=== PATIENT | female | born 1975 | race Caucasian/White ===

== ENCOUNTER → 2016-11-28 | Outpatient (REF) | payer OTHER | LOC: M SFHCLERA 20:04 | PROVIDERS: ATTEND Physician Assistant | DX: J02.9 Acute pharyngitis, unspecified (principal) ==

== ENCOUNTER → 2018-11-26 | Outpatient (REF) | payer OTHER | LOC: M SFHCLERA 12:24 | PROVIDERS: ATTEND Nurse Practitioner Family | DX: R68.89 Other general symptoms and signs (principal) ==

== ENCOUNTER → 2019-01-20 | Outpatient (REF) | payer OTHER | LOC: M SFHCLERA 15:49 | PROVIDERS: ATTEND Physician Assistant | DX: J02.9 Acute pharyngitis, unspecified (principal) ==

== ENCOUNTER → 2019-04-02 | Outpatient (REF) | payer OTHER ==
[2019-04-02 17:19] LABS: BASO # 0.1 10^3/uL (0.0-0.2); EOS # 0.2 10^3/uL (0.0-0.50); EOS % 2.8 % (0.0-3.0); HEMATOCRIT 42.5 % (36.0-47.0); HEMOGLOBIN 13.8 g/dl (12.0-15.5); LYMPH # 2.4 10^3/uL (1.5-4.5); LYMPH % 33.1 % (24.0-44.0); MEAN CORPUSCULAR HEMOGLOBIN 29.2 pg (27.0-33.0); MEAN CORPUSCULAR HGB CONC 32.5 g/dl (32.0-36.5); MONO # 0.5 10^3/uL (0.0-0.8); MONO % 7.2 % (0.0-5.0); NEUTROPHILS % 55.5 % (36.0-66.0); PLATELET COUNT, AUTOMATED 310 10^3/uL (150-450); RED BLOOD COUNT 4.72 10^6/uL (4.00-5.40); WHITE BLOOD COUNT 7.2 10^3/uL (4.0-10.0)
[2019-04-02 17:20] LABS: ALBUMIN 3.9 GM/DL (3.2-5.2); ALT/SGPT 21 U/L (12-78); BILIRUBIN,TOTAL 0.3 MG/DL (0.2-1.0); BLOOD UREA NITROGEN 12 MG/DL (7-18); CALCIUM LEVEL 9.3 MG/DL (8.5-10.1); CARBON DIOXIDE LEVEL 31 MEQ/L (21-32); CHLORIDE LEVEL 107 MEQ/L (98-107); CHOLESTEROL LEVEL 230 MG/DL (<200); CHOLESTEROL RISK RATIO 2.948 (<5); FREE T4 0.84 NG/DL (0.76-1.46); GLOMERULAR FILTRATION RATE > 60.0 (>58); GLUCOSE, FASTING 93 MG/DL (70-100); HDL CHOLESTEROL 78 MG/DL (>40); LDL CHOLESTEROL 126 MG/DL (<100); NON-HDL-C 152 MG/DL; POTASSIUM SERUM 4.6 MEQ/L (3.5-5.1); SODIUM LEVEL 139 MEQ/L (136-145); THYROID PEROXIDASE ANTIBODY 39.1 U/ML (<60.0); TOTAL PROTEIN 7.4 GM/DL (6.4-8.2); TRIGLYCERIDES LEVEL 128 MG/DL (<150)
[2019-04-05 10:23] LABS: THYROGLOBULIN ANTIBODY < 15.0 U/ML (<60.0)
== END ==
LOC: M SFHCLERA 11:34
PROVIDERS: ATTEND Nurse Practitioner Family
DX: G47.00 Insomnia, unspecified (principal); Z13.220 Encounter for screening for lipoid disorders; Z86.39 Personal history of other endocrine, nutritional and metabolic disease

== ENCOUNTER → 2019-07-26 | Outpatient (REF) | payer OTHER | LOC: M SFHCLERA 12:52 | PROVIDERS: ATTEND Nurse Practitioner Family | DX: J02.9 Acute pharyngitis, unspecified (principal) ==

== ENCOUNTER → 2019-10-22 | Outpatient (REF) | payer OTHER | LOC: M SFHCLERA 09:38 | PROVIDERS: ATTEND Physician Assistant | DX: R50.9 Fever, unspecified (principal) ==

== ENCOUNTER → 2019-10-26 | Outpatient (CLI) | payer OTHER ==
--- NOTE | 2019-10-26 13:04 | REP ---
CHEST, TWO VIEWS: There is no evidence of acute infiltrate. No pleural effusion is seen. The heart is normal in size. The mediastinal silhouette is unremarkable. The visualized osseous structures are intact. IMPRESSION: No acute pulmonary disease. Electronically Signed by Sameer Ellison MD 10/26/2019 07:55 P
== END ==
LOC: M LRY 12:31
PROVIDERS: ATTEND Physician Assistant
DX: J10.1 Influenza due to other identified influenza virus with other respiratory manifestations (principal); R05 Cough
CPT/HCPCS: 71046; G0463

== ENCOUNTER → 2020-11-01 | Outpatient (REF) | payer OTHER | LOC: M SFHCLERA 09:25 | PROVIDERS: ATTEND Nurse Practitioner Family | DX: J06.9 Acute upper respiratory infection, unspecified (principal) | CPT/HCPCS: 82726; 87804; 87880; G0463; U0003 ==

== ENCOUNTER → 2022-07-25 | Outpatient (CLI) | payer OTHER | LOC: M SLEEP 20:00 | PROVIDERS: ATTEND Nurse Practitioner Family | DX: G47.33 Obstructive sleep apnea (adult) (pediatric) (principal) ==

== ENCOUNTER 2022-09-08 03:19 | Emergency (ER) | payer OTHER ==
[~2022-09-08] VITALS: Ht 160 cm; Wt 109.1 kg
[2022-09-08] MEDS ORDERED: FAMO40TA3 PO (03:29)
[2022-09-08] MEDS ORDERED: SERTRALINE (03:29)
[2022-09-08] MEDS ORDERED: MONT10TA97 PO (03:29)
[2022-09-08] MEDS ORDERED: DOXY100T PO (03:29)
[2022-09-08] MEDS ORDERED: PANT20TA6 PO (03:29)
[2022-09-08 03:52] VITALS: BP 137/75
[2022-09-08] MEDS ORDERED: MORPHINE 4 MG/ML 1ML VIAL IV ONE (04:05)
[2022-09-08] MEDS ORDERED: MIDAZOLAM INJ 2MG/2ML VIAL IV STA (04:42)
[2022-09-08] MEDS ORDERED: fentaNYL 100 MCG/2 ML INJECTION IV ONE ×2 (04:45)
[2022-09-08] MEDS ORDERED: NORCO 5/325MG TABLET (HOME DOSE PACK) PO ONE (05:20)
[2022-09-08] MEDS ORDERED: MIDAZOLAM INJ 2MG/2ML VIAL IV ONE (05:20)
[2022-09-08] MEDS ORDERED: PERCOCET 5MG/325MG TAB PO ONE (05:40)
== END 2022-09-08 07:20 | disposition home or self-care (01) ==
LOC: M ED 03:19
DX: S82.831A Other fracture of upper and lower end of right fibula, initial encounter for closed fracture (principal); S82.391A Other fracture of lower end of right tibia, initial encounter for closed fracture; S93.04XA Dislocation of right ankle joint, initial encounter; X50.1XXA Overexertion from prolonged static or awkward postures, initial encounter; Y92.410 Unspecified street and highway as the place of occurrence of the external cause; K21.9 Gastro-esophageal reflux disease without esophagitis; F41.9 Anxiety disorder, unspecified; Z88.0 Allergy status to penicillin

== ENCOUNTER 2022-09-11 11:49 | Observation (INO) | payer OTHER ==
[~2022-09-11] VITALS: Ht 160 cm; Wt 106.8 kg
[~2022-09-11 11:49] MED LIST: DOXY100T PO; FAMO40TA3 PO; MONT10TA97 PO; PANT20TA6 PO; SERTRALINE
[2022-09-11 14:27] LABS: RSV AMPLIFICATION NEGATIVE (NEGATIVE)
[2022-09-11] MEDS ORDERED: D 50CAP3 PO (15:20)
[2022-09-11] MEDS ORDERED: RA M10TA PO (15:20)
[2022-09-11] MEDS ORDERED: ACET500T15 PO (15:20)
[2022-09-11] MEDS ORDERED: IBUP200T46 PO (15:20)
[2022-09-11] MEDS ORDERED: ZOLO100T PO (15:20)
[2022-09-11] MEDS ORDERED: VITMTA PO (15:20)
[2022-09-11] MEDS ORDERED: B-COTAB10 PO (15:20)
[2022-09-11] MEDS ORDERED: HOME MED LIST COMPLETE! XX SCH (15:25)
[2022-09-11 16:23] LABS: HEMATOCRIT 39.9 % (36.0-47.0); HEMOGLOBIN 12.7 g/dl (12.0-15.5); MEAN CORPUSCULAR HEMOGLOBIN 29.1 pg (27.0-33.0); MEAN CORPUSCULAR HGB CONC 31.8 g/dl (32.0-36.5); MEAN CORPUSCULAR VOLUME 91.5 fl (80.0-96.0); PLATELET COUNT, AUTOMATED 324 10^3/uL (150-450); RED BLOOD COUNT 4.36 10^6/uL (4.00-5.40); WHITE BLOOD COUNT 7.7 10^3/uL (4.0-10.0)
[2022-09-11 16:47] LABS: BLOOD UREA NITROGEN 8 MG/DL (9-23); CALCIUM LEVEL 9.6 MG/DL (8.5-10.1); CARBON DIOXIDE LEVEL 28 MMOL/L (20-31); CHLORIDE LEVEL 101 MMOL/L (98-107); CREATININE FOR GFR 0.73 MG/DL (0.55-1.30); GLOMERULAR FILTRATION RATE > 60.0 (>58); GLUCOSE, FASTING 93 MG/DL (60-100); POTASSIUM SERUM 4.1 MMOL/L (3.5-5.1); SODIUM LEVEL 137 MMOL/L (136-145)
[2022-09-11] MEDS ORDERED: NS 1,000 ML IV SCH (18:45)
[2022-09-11] MEDS: MORPHINE 2 MG/ML 1ML VIAL IV PRN (19:37)
[2022-09-11] MEDS: FAMOTIDINE 20 MG TAB PO SCH (21:00)
[2022-09-11] MEDS ORDERED: BUPIVACAINE HCL 0.25% 30ML VIAL As Ordered ONE (21:05)
[2022-09-11] MEDS ORDERED: ACETAMINOPHEN 1000MG 100ML IV BAG As Ordered ONE (21:09)
[2022-09-11] MEDS ORDERED: SUGAMMADEX SODIUM 500 MG/5 ML VIAL (BRIDION) As Ordered ONE (21:09)
[2022-09-11] MEDS ORDERED: ONDANSETRON 4MG 2ML VIAL As Ordered ONE (21:09)
[2022-09-11] MEDS ORDERED: propofoL 200 MG/20 ML VIAL As Ordered ONE (21:09)
[2022-09-11] MEDS ORDERED: fentaNYL 100 MCG/2 ML INJECTION As Ordered ONE (21:09)
[2022-09-11] MEDS ORDERED: ROCURONIUM BROMIDE 50MG/5ML VIAL As Ordered ONE (21:09)
[2022-09-11] MEDS ORDERED: LIDOCAINE 2% 100MG/5ML SDV (FOR ANES.) As Ordered ONE (21:09)
[2022-09-11] MEDS ORDERED: KETOROLAC 60MG 2ML VIAL As Ordered ONE (21:09)
[2022-09-11] MEDS ORDERED: MIDAZOLAM INJ 2MG/2ML VIAL As Ordered ONE (21:10)
[2022-09-11] MEDS ORDERED: ceFAZolin 2 GM/D5W 50 ML IV BAG As Ordered ONE (21:18)
[2022-09-11] MEDS ORDERED: ceFAZolin 1GM VIAL As Ordered ONE (21:19)
[2022-09-11] MEDS ORDERED: LR 1,000 ML IV SCH (21:20)
[2022-09-11] MEDS ORDERED: ONDANSETRON 4MG 2ML VIAL IV PRN (21:20)
[2022-09-11] MEDS ORDERED: BUPIVACAINE HCL 0.5% 30ML VIAL As Ordered ONE (22:48)
[2022-09-11] MEDS ORDERED: HYDROmorphone HCL 2MG/ML 1ML VIAL As Ordered ONE (23:44)
[2022-09-12] VITALS (9 sets, daily range): BP systolic 110–150; BP diastolic 57–85
[2022-09-12] MEDS: HYDROMORPHONE HCL 0.5 MG/ 0.5 ML SYRINGE IV PRN ×3 (00:11→00:26)
[2022-09-12] MEDS ORDERED: MIDAZOLAM INJ 2MG/2ML VIAL IV ONE (00:25)
[2022-09-12] MEDS ORDERED: oxyCODONE 5MG TAB PO PRN (00:30)
[2022-09-12] MEDS ORDERED: ACETAMINOPHEN TAB 650MG DOSE (2X325MG) PO PRN (00:35)
[2022-09-12] MEDS ORDERED: SENNA 8.6 MG TAB (SENOKOT) PO PRN (00:35)
[2022-09-12] MEDS ORDERED: KETAMINE HCL 200MG/20ML VIAL IV ONE (01:00)
[2022-09-12] MEDS ORDERED: KETAMINE HCL 200MG/20ML VIAL As Ordered ONE (01:03)
[2022-09-12] MEDS: MORPHINE 2 MG/ML 1ML VIAL IV PRN (03:28)
[2022-09-12 05:33] LABS: HEMATOCRIT 36.6 % (36.0-47.0); HEMOGLOBIN 11.8 g/dl (12.0-15.5); MEAN CORPUSCULAR HGB CONC 32.2 g/dl (32.0-36.5); MEAN CORPUSCULAR VOLUME 93.1 fl (80.0-96.0); PLATELET COUNT, AUTOMATED 284 10^3/uL (150-450); RED BLOOD COUNT 3.93 10^6/uL (4.00-5.40); WHITE BLOOD COUNT 11.1 10^3/uL (4.0-10.0)
[2022-09-12] MEDS: ceFAZolin SOD 2 GM in IV 1 EA IV SCH ×3 (05:46→20:43)
[2022-09-12 06:00] LABS: BLOOD UREA NITROGEN 10 MG/DL (9-23); CALCIUM LEVEL 7.9 MG/DL (8.5-10.1); CARBON DIOXIDE LEVEL 24 MMOL/L (20-31); CHLORIDE LEVEL 103 MMOL/L (98-107); CREATININE FOR GFR 0.67 MG/DL (0.55-1.30); GLOMERULAR FILTRATION RATE > 60.0 (>58); GLUCOSE, FASTING 110 MG/DL (60-100); SODIUM LEVEL 136 MMOL/L (136-145)
[2022-09-12] MEDS: PERCOCET 5MG/325MG TAB PO PRN ×5 (06:40→22:35)
[2022-09-12] MEDS: PANTOPRAZOLE 20 MG TAB PO SCH (08:10)
[2022-09-12] MEDS: THIAMINE 100 MG TAB PO SCH (08:11)
[2022-09-12] MEDS: DOCUSATE SODIUM 100MG CAPSULE PO SCH ×2 (08:11→20:43)
[2022-09-12] MEDS: MONTELUKAST 10 MG TAB PO SCH (08:11)
[2022-09-12] MEDS: MULTIVITAMINS/MINERALS THERAP 1 TAB PO SCH (08:11)
[2022-09-12] MEDS: SERTRALINE 100 MG TAB PO SCH (08:11)
[2022-09-12] MEDS: FOLIC ACID 1MG TAB PO SCH (08:11)
[2022-09-12] MEDS ORDERED: MORPHINE 2 MG/ML 1ML VIAL IV ONE (09:05)
[2022-09-12] MEDS ORDERED: MIRA3350 PO (11:00)
[2022-09-12] MEDS ORDERED: COLA100C5 PO (11:00)
[2022-09-12] MEDS ORDERED: PERCOCET PO (11:00)
[2022-09-12] MEDS ORDERED: ASPI81CH33 PO (11:15)
[2022-09-12] MEDS: IBUPROFEN 600MG TAB PO PRN ×2 (12:33→20:54)
[2022-09-12] MEDS: FAMOTIDINE 20 MG TAB PO SCH (20:43)
[2022-09-12] MEDS: ENOXAPARIN 40MG/0.4ML SYRINGE (J1650 PER 10MG) SC SCH (21:00)
[2022-09-13] MEDS: PERCOCET 5MG/325MG TAB PO PRN ×4 (02:37→14:30)
[2022-09-13] MEDS: IBUPROFEN 600MG TAB PO PRN ×3 (02:41→15:43)
[2022-09-13 06:22] LABS: BASO % 0.5 % (0.0-1.0); EOS # 0.3 10^3/uL (0.0-0.5); EOS % 3.3 % (0.0-3.0); HEMATOCRIT 34.6 % (36.0-47.0); HEMOGLOBIN 10.8 g/dl (12.0-15.5); LYMPH # 2.6 10^3/uL (1.5-5.0); LYMPH % 33.3 % (24.0-44.0); MEAN CORPUSCULAR HEMOGLOBIN 29.6 pg (27.0-33.0); MEAN CORPUSCULAR HGB CONC 31.2 g/dl (32.0-36.5); MEAN CORPUSCULAR VOLUME 94.8 fl (80.0-96.0); MONO # 0.7 10^3/uL (0.0-0.8); MONO % 9.4 % (2.0-8.0); NEUTROPHILS # 4.1 10^3/uL (1.5-8.5); NEUTROPHILS % 53.1 % (36.0-66.0); PLATELET COUNT, AUTOMATED 250 10^3/uL (150-450); RED BLOOD COUNT 3.65 10^6/uL (4.00-5.40); WHITE BLOOD COUNT 7.8 10^3/uL (4.0-10.0)
[2022-09-13 06:38] VITALS: BP 140/70
[2022-09-13] MEDS: SERTRALINE 100 MG TAB PO SCH (08:01)
[2022-09-13] MEDS: THIAMINE 100 MG TAB PO SCH (08:02)
[2022-09-13] MEDS: FOLIC ACID 1MG TAB PO SCH (08:02)
[2022-09-13] MEDS: MULTIVITAMINS/MINERALS THERAP 1 TAB PO SCH (08:02)
[2022-09-13] MEDS: DOCUSATE SODIUM 100MG CAPSULE PO SCH (08:02)
[2022-09-13] MEDS: MONTELUKAST 10 MG TAB PO SCH (08:03)
[2022-09-13] MEDS: PANTOPRAZOLE 20 MG TAB PO SCH (08:03)
[2022-09-13] MEDS: ENOXAPARIN 40MG/0.4ML SYRINGE (J1650 PER 10MG) SC SCH (08:04)
[2022-09-13 14:00] VITALS: BP 135/69
== END 2022-09-13 16:50 | disposition home or self-care (01) ==
LOC: M ED 11:49 → M ED INP 16:07 → ENRESERV 09-12 00:03 → M MS5PR 09-12 01:50
PROVIDERS: ADMIT Internal Medicine; ATTEND Internal Medicine
DX: S82.841A Displaced bimalleolar fracture of right lower leg, initial encounter for closed fracture (principal); S93.01XA Subluxation of right ankle joint, initial encounter; F10.120 Alcohol abuse with intoxication, uncomplicated; W10.1XXA Fall (on)(from) sidewalk curb, initial encounter; Y92.480 Sidewalk as the place of occurrence of the external cause; Y93.01 Activity, walking, marching and hiking; D64.9 Anemia, unspecified; K21.9 Gastro-esophageal reflux disease without esophagitis; F32.A Depression, unspecified; E66.01 Morbid (severe) obesity due to excess calories; J30.1 Allergic rhinitis due to pollen; G47.33 Obstructive sleep apnea (adult) (pediatric); Z88.0 Allergy status to penicillin; Z79.899 Other long term (current) drug therapy
CPT/HCPCS: 27814; 27829; 36415; 73610; 80048; 85025; 85027; 87631; 93005; 96374; 96375; 96376; 97116; 97161; 97530; 99284; C1713; J1100; J2405

== ENCOUNTER → 2022-09-19 | Outpatient (CLI) | payer OTHER ==
[~2022-09-19] MED LIST changes: +ACET500T15 PO; +ASPI81CH33 PO; +B-COTAB10 PO; +COLA100C5 PO; +D 50CAP3 PO; +IBUP200T46 PO; +MIRA3350 PO; +PERCOCET PO; +RA M10TA PO; +VITMTA PO; +ZOLO100T PO
== END ==
LOC: M SOG 11:54
PROVIDERS: ATTEND Orthopaedic Surgery Adult Reconstructive Orthopaedic Surgery
DX: S82.841D Displaced bimalleolar fracture of right lower leg, subsequent encounter for closed fracture with routine healing (principal)

== ENCOUNTER → 2022-10-16 | Outpatient (CLI) | payer OTHER | LOC: M SOG 08:06 | PROVIDERS: ATTEND Orthopaedic Surgery Adult Reconstructive Orthopaedic Surgery | DX: S82.841D Displaced bimalleolar fracture of right lower leg, subsequent encounter for closed fracture with routine healing (principal); Z98.890 Other specified postprocedural states ==

== ENCOUNTER → 2022-10-24 | Outpatient (CLI) | payer OTHER | LOC: M SOG 11:55 | PROVIDERS: ATTEND Orthopaedic Surgery Adult Reconstructive Orthopaedic Surgery | DX: S82.841D Displaced bimalleolar fracture of right lower leg, subsequent encounter for closed fracture with routine healing (principal); Z98.890 Other specified postprocedural states ==

== ENCOUNTER → 2022-11-27 | Outpatient (CLI) | payer OTHER | LOC: M SOG 08:00 | PROVIDERS: ATTEND Orthopaedic Surgery Adult Reconstructive Orthopaedic Surgery | DX: S82.841D Displaced bimalleolar fracture of right lower leg, subsequent encounter for closed fracture with routine healing (principal) ==

== ENCOUNTER → 2022-12-27 | Outpatient (CLI) | payer OTHER | LOC: M SOG 09:13 | PROVIDERS: ATTEND Orthopaedic Surgery | DX: S82.841D Displaced bimalleolar fracture of right lower leg, subsequent encounter for closed fracture with routine healing (principal); Z98.890 Other specified postprocedural states ==